=== PATIENT | female | born 2005 | race Two or more races ===

== ENCOUNTER 2025-02-26 19:53 | Emergency (ER) | payer BC ==
[~2025-02-26] VITALS: Ht 172.7 cm; Wt 75.7 kg
[2025-02-26] MEDS ORDERED: RINGERS SOLUTION,LACTATED 1,000 ML IV STA (21:03)
[2025-02-26 21:49] LABS: BASO % 0.6 % (0.1-1.2); EOS # 0.06 (0.04-0.54); EOS % 1.9 % (0.7-7.0); LYMPH # 1.42 (1.18-3.74); LYMPH % 44.7 % (19.3-53.1); MEAN PLATELET VOLUME 11.00 fl (9.4-12.4); MONO # 0.35 (0.24-0.82); MONO % 11.0 % (4.7-12.5); NEUT # 1.32 (1.56-6.13); NEUT % 41.5 % (34.0-71.1); RED CELL DISTRIBUTION WIDTH 15.4 % (11.6-14.4)
[2025-02-26 22:09] LABS: INR 1.02
[2025-02-26 22:35] LABS: ALT/SGPT 25 U/L (12-78); AST/SGOT 19 U/L (15-37); BILIRUBIN TOTAL 0.63 mg/dL (0.3-1.2); BUN CREA RATIO 18 (7.0-25.0); CREATININE SERUM 0.61 mg/dL (0.55-1.02); GFR 125.04; GLOBULINA 3.2 G/DL (2.4-3.5); GLUCOSE FASTING 84 mg/dL (65-100); OSMOLALITY SERUM 280 MOSM/KG (275-295)
[2025-02-26 22:45] LABS: HCG QUANTITATIVE < 1 mUI/mL (1-3)
== END 2025-02-27 00:19 | disposition home or self-care (01) ==
LOC: ER 19:53
PROVIDERS: General Practice
DX: O03.9 Complete or unspecified spontaneous abortion without complication (principal)